=== PATIENT | female | born 1980 | race Caucasian/White ===

== ENCOUNTER 2016-10-14 08:19 | Emergency (ER) | payer OTHER ==
--- NOTE | ~2016-10-14 | CT4 ---
STS. [facility] A Service of [facility] RADIOLOGY TEXT RESULTS PATIENT: ELENA LEWIS LOCATION: SED : 82 UNIT #: [id number] AGE: [address]: Jesus Harrison MD SEX: F ORDER DR: [id number] [address] [address] [id number] E MR#: [id number] #: [id number] NAME: ELENA LEWIS : 1980 SEX: F STUDY DATE/TIME: 10/14/2016 10:47 UNIT: SED ROOM: STUDY DESCRIPTION: CT Abd and Pelv Wo Cont Attending Physician: Jesus Harrison M.D. Ordering Physician: Jesus Harrison M.D. Primary Care Physician: Primary Care Physician No MEDICAL IMAGING REPORT This report is preliminary unless electronic signature is present. EXAM CT abdomen and pelvis noncontrast 10/14/2016 INDICATIONS Abdominal pain. Umbilical area pain since yesterday. Elevated white blood cell count. Unable to remove piercing. TECHNIQUE CT abdomen and pelvis performed without administration of oral or intravenous contrast. This CT exam was performed with one or more of the following radiation dose reduction techniques: automatic exposure control, adjustment of mA and/or kV according to patient size, and iterative reconstruction. COMPARISON 07/13/2014 FINDINGS The lung bases are clear. The CT abdomen and pelvis performed without administration of oral or intravenous contrast. Comparison 07/13/2014. Lung bases clear. Inferior heart and pericardium unremarkable. Small subcentimeter cyst right hepatic lobe unchanged. No suspicious hepatic finding. The patient is status post cholecystectomy. No biliary ductal dilatation. Spleen, small accessory spleen, pancreas, adrenal glands unremarkable. No renal calculi or obstruction. Previously seen right renal cyst not well demonstrated on this examination. No suspicious renal findings. CT Pelvis: No inguinal adenopathy. There is genital jewelry in place. Urinary bladder unremarkable. Trace free fluid in the pelvis. Not drainable. Likely physiologic. Urinary bladder, uterus, adnexal regions otherwise unremarkable. There is no pelvic or retroperitoneal adenopathy. The distal esophagus, stomach, small bowel unremarkable. Appendix are STS. [facility] A Service of [facility] RADIOLOGY TEXT RESULTS PATIENT: ELENA LEWIS [place] [facility] [birth year] UNIT #: [id number] AGE: [address]: Jesus Harrison MD SEX: F ORDER DR: normal. Colon unremarkable. Aorta normal. Bony structures unremarkable. IMPRESSION 1. No clearly acute abnormalities seen in the abdomen or pelvis. 2. Status post cholecystectomy. No biliary dilatation. 3. Stable subcentimeter cyst right hepatic lobe. 4. Kidneys and urinary tract unremarkable. 5. Trace free fluid in the pelvis. Not drainable. Likely physiologic in nature. 6. Appendix normal. Dictated by... Clinton Maldonado M.D. THIS IS AN ELECTRONICALLY VERIFIED REPORT Clinton Maldonado M.D. at 10/15/2016 6:35 PM SVETLANA/elvin TD: 10/14/2016 13:23 JOB #: [id number] MEDICAL IMAGING REPORT Page 1 of 1
[~2016-10-14 08:19] MED LIST: ADVIL200 M2 PO; CYMBALTA PO; FLEXERIL10 MG PO; MACRODANTIN PO; NEURONTIN600 MG PO; NO MEDICATIONS; PHENERGAN25 M1 PO; VICODIN 5-3001 EACH PO; VOLTAREN75 MG PO
[2016-10-14 09:46] LABS: BASOPHIL# 0.1 X10e3 (0-0.3); BASOPHIL% 0.5 % (0-2.5); EOSINOPHIL# 0.1 X10e3 (0-0.7); EOSINOPHIL% 0.5 % (0.0-7.0); HEMATOCRIT 39.1 % (35.0-45.0); HEMOGLOBIN 13.1 gm/dL (12.0-16.0); LYMPHOCYTE# 1.1 X10e3 (1.0-3.5); LYMPHOCYTE% 8.2 % (17.0-45.0); MEAN CELL VOLUME 100.7 FL (83-96); MEAN CORPUSCULAR HEMOGLOBIN 33.8 PG (28-34); MEAN CORPUSCULAR HGB CONC 33.6 g/dL (30-36); MEAN PLATELET VOLUME 8.6 FL (6.5-11.5); MONOCYTE# 0.4 X10e3 (0-1.0); MONOCYTE% 3.3 % (3.0-12.0); NEUTROPHIL# 11.6 X10e3 (1.5-7.1); NEUTROPHIL% 87.5 % (40-75); PLATELET COUNT 303 X10e3 (140-420); RED BLOOD COUNT 3.88 X10e (3.90-5.30); RED CELL DISTRIBUTION WIDTH 12.4 % (11.0-15.5); WHITE BLOOD COUNT 13.2 X10e3 (4.0-10.5)
[2016-10-14 09:52] LABS: DIFF IND NO
[2016-10-14 10:07] LABS: ALBUMIN SERUM 4.2 g/dL (3.5-5.0); ALKALINE PHOSPHATASE 62 U/L (32-92); ALT (SGPT) 8 U/L (10-40); AMYLASE 18 U/L (0-46); AST (SGOT) 9 U/L (10-42); BILIRUBIN,TOTAL 0.4 mg/dL (0.2-2.0); BLOOD UREA NITROGEN 10 mg/dL (9-23); CALCIUM SERUM 8.5 mg/dL (8.4-10.2); CARBON DIOXIDE 21 mmol/L (22-31); CHLORIDE 107 mmol/L (100-111); CREATININE SERUM 0.8 mg/dL (0.6-1.4); GLOM FILT RATE Estimated 95.6 mL/min (>60); GLUCOSE FASTING 109 mg/dL (70-110); LIPASE 28 U/L (22-51); POTASSIUM 3.9 mmol/L (3.5-5.1); PROTEIN TOTAL SERUM 7.6 g/dL (6.0-8.3); SODIUM 131 mmol/L (135-145)
[2016-10-14 10:19] LABS: BILIRUBIN, DIRECT <0.1 mg/dL (0.0-0.2); BILIRUBIN,INDIRECT 0.3 mg/dL (0.0-0.9)
[2016-10-14 10:21] LABS: URINE SOURCE CLEAN CATCH
[2016-10-14 10:24] LABS: URINE APPEARANCE CLEAR; URINE BILIRUBIN NEG (NEG); URINE BLOOD 1+ (NEG); URINE COLOR YELLOW; URINE GLUCOSE NEG (NORM); URINE KETONE NEG (NEG); URINE LEUKOCYTE ESTERASE NEG (NEG); URINE NITRATE NEG (NEG); URINE PROTEIN NEG (NEG); URINE SPECIFIC GRAVITY 1.015 (1.003-1.035); URINE UROBILINOGEN 0.2 MG/DL (NORM)
[2016-10-14 10:25] LABS: MICRO INDICATED? YES
[2016-10-14 10:31] LABS: CULTURE INDICATED? YES; URINE BACTERIA 1+ (NEG); URINE RBC 0-2 /[HPF] (0-2); URINE SQUAMOUS EPITHELIAL CELL MODERATE /[HPF]
[2016-10-14 11:35] LABS: AMPHETAMINE NEG (NEG); BARBITURATES NEG (NEG); BENZODIAZEPINES POS (NEG); COCAINE NEG (NEG); MARIJUANA NEG (NEG); OPIATES POS (NEG); TRICYCLIC ANTIDEPRESSANTS POS (NEG); U METHADONE NEG (NEG)
== END 2016-10-14 12:54 | disposition home or self-care (01) ==
LOC: SED 08:19
PROVIDERS: Emergency Medicine
DX: K29.00 Acute gastritis without bleeding (principal); K21.9 Gastro-esophageal reflux disease without esophagitis; N39.0 Urinary tract infection, site not specified; Z90.49 Acquired absence of other specified parts of digestive tract; Z98.51 Tubal ligation status; F17.210 Nicotine dependence, cigarettes, uncomplicated; Z79.899 Other long term (current) drug therapy
CPT/HCPCS: 36415; 74176; 80048; 80076; 80307; 81003; 82150; 83690; 84703; 85025; 87086; 96361; 96374; 96375; 96376; 99284; C9113; J1170; J2405